=== PATIENT | female | born 1960 | race Hispanic/Latino ===

== ENCOUNTER 2018-01-19 23:05 | Inpatient (IN) | payer MEDICAID ==
[2018-01-19 23:05] VITALS: BMI 19.3
[2018-01-20 00:24] LABS: BASO % 0.4 % (0.0-2.0); EOS # 0.1 K/uL (0.0-0.7); EOS % 1.9 % (0.0-4.0); HEMOGLOBIN 13.8 g/dL (11.0-16.0); LYMPH % 42.4 % (20.0-40.0); MEAN CELL VOLUME 97.9 fL (81.0-99.0); MEAN CORPUSCULAR HEMOGLOBIN 33.8 pg (27.0-31.0); MEAN CORPUSCULAR HGB CONC 34.6 g/dL (33.0-37.0); MEAN PLATELET VOLUME 9.3 fL (7.2-11.7); MONO # 0.5 K/uL (0.0-0.8); MONO % 11.4 % (0.0-10.0); NEUT % 43.9 % (50.0-75.0); RBC 4.06 Mil/uL (3.80-5.20); RED CELL DISTRIBUTION WIDTH 12.4 % (11.5-14.5); WHITE BLOOD COUNT 4.6 K/uL (4.8-10.8)
[2018-01-20 00:27] LABS: URINE BILIRUBIN NEGATIVE (NEGATIVE); URINE BLOOD NEGATIVE (NEGATIVE); URINE CLARITY Clear (Clear); URINE COLOR Colorless (YELLOW); URINE GLUCOSE (UA) NORMAL (Normal); URINE LEUKOCYTE ESTERASE NEG Leu/uL (Negative); URINE PROTEIN NEGATIVE (NEGATIVE); URINE UROBILINOGEN NORMAL mg/dL (0.2-1.0)
[2018-01-20 00:33] LABS: HCG,QUALITATIVE URINE NEGATIVE (NEGATIVE)
[2018-01-20 00:35] LABS: ALB/GLOB RATIO 1.2 (1.0-2.1); ALBUMIN 4.5 g/dL (3.5-5.0); ALT/SGPT 106 U/L (9-52); AST/SGOT 120 U/L (14-36); BLOOD UREA NITROGEN 7 mg/dL (7-17); GFR AFRICAN-AMERICAN > 60; GFR NON-AFRICAN AMERICAN > 60
[2018-01-20 00:44] LABS: BARBITURATES, UR NEGATIVE (NEGATIVE); OPIATES, UR NEGATIVE (NEGATIVE); PHENCYCLIDINE, UR NEGATIVE (NEGATIVE)
[2018-01-20 01:50] LABS: BENZODIAZEPINES, UR POSITIVE (NEGATIVE)
--- NOTE | 2018-01-20 02:03 | C.PDOC ---
History Of Present Illness 57 y/o female presents to ER for alcohol detox. Pt was prescreened for detox. 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.Pt offers no c/o Time Seen by Provider: 01/20/18 01:59 Chief Complaint (Nursing): Substance Abuse History Per: Patient Modifying Factor(s): Alcohol Associated Symptoms: denies: Anxiety, Suicidal Thoughts Recent travel outside of the [place]: No Past Medical History Vital Signs: Last Vital Signs Temp 97.8 F 01/20/18 00:48 Pulse 98 H 01/20/18 00:48 Resp 18 01/20/18 00:48 BP 105/72 01/20/18 00:48 Pulse Ox 97 01/20/18 02:04 - Medical History PMH: Asthma, COPD, HTN, Hypercholesterolemia, Pneumonia, TIA Denies: Anxiety, Bipolar Disorder, Depression, Paranoia, Post Traumatic Stress Disorder, Chronic Kidney Disease, Schizophrenia - [facility] Procedures APPLICATION OF SPLINT (12/14/13) IMMOBILIZ/WOUND ATTN NEC (06/15/02) INJECT/INFUSE NEC (01/03/15) LOCAL EXCIS BREAST LES (08/14/99) NEBULIZER THERAPY (08/08/14) UMBIL HERNIA REPAIR NEC (08/14/99) Family History: States: Unknown Family Hx - Social History Hx Tobacco Use: Yes (QUIT) Hx Alcohol Use: Yes Hx Substance Use: No - Immunization History Hx Tetanus Toxoid Vaccination: No Hx Influenza Vaccination: No Hx Pneumococcal Vaccination: No Review Of Systems Constitutional: Negative for: Fever Cardiovascular: Negative for: Chest Pain Respiratory: Negative for: Shortness of Breath Psych: Negative for: Suicidal ideation Physical Exam - Physical Exam Appears: Well, No Acute Distress Head: Atraumatic Eye(s): bilateral: Normal Inspection Neck: Normal Cardiovascular: Rhythm Regular Respiratory: Normal Breath Sounds Gastrointestinal/Abdominal: Normal Exam, Soft Extremity: Normal ROM, No Pedal Edema Extremity: Bilateral: Atraumatic Neurological/Psych: Oriented x3, Normal Cognition Gait: Steady ED Course And Treatment - Laboratory Results Result Diagrams: 01/20/18 00:19 01/20/18 00:19 O2 Sat by Pulse Oximetry: 97 Pulse Ox Interpretation: Normal Progress Note: Labs reviewed. Pt is medically cleared for Detox. Pt was evaluated by fruit or nut farmworkerSusanne and will admit for alcohol detox under Dr Dara augustin Disposition - Disposition Disposition: HOSPITALIZED Disposition Time: 02:23 Condition: STABLE Forms: [facility] ([place]) - Clinical Impression Clinical Impression: Alcohol use disorder, severe, dependence, Sedative dependence with current use
--- NOTE | 2018-01-20 02:53 | PCM.BM ---
<Willie Lipscombelda Valdez - Last Filed: 01/20/18 02:52> Treatment Plan Problems - Problems identified on initial assessmt Ineffective Coping Skills Date Initiated: 01/20/18 Time Initiated: 02:52 Assessment reference: NA Status: Active Treatment assets and liabiliti Patient Assests: ADL independent Patient Liabilities: substance abuse - Milieu Protocol Maintain good personal hygiene: daily Encourage regular showers, daily Remind patient to perform daily oral care, other Assist patient to perform ADL's Maintain personal safety: every shift Educate patient to report safety concerns to staff, every shift Monitor environment for contraband/sharps Medication safety: Monitor for expected outcome, potential side effects: every shift, Assess barriers to learning: every shift, Assess readiness for medication education: every shift <Matt Diamond - Last Filed: 01/21/18 12:49> - Diagnosis (1) Alcohol use disorder, severe, dependence Status: Acute Interventions: 01/21/18 12:49 * Assess 7x/week regarding severity of withdrawal * Educate regarding risks, benefits, side effects and alternatives of medications * Use Motivational Interviewing for abstinence * Use CBT for relapse prevention * Medication management for withdrawal symptoms * Encourage medication assisted treatment * <Marilin Ryan - Last Filed: 01/21/18 13:30> Family Contact Family involvement: [place]/SO not involved - Goals for Treatment Patient goals for treatment: Complete detox and transtion to outpatient therapy. Discharge/Continuing Care - Education Needs Education Needs: Patient Medication, Patient Diagnosis/Disease Process, Patient Coping Skills, Patient Anger Management skills, Patient Placement options, Patient Community resources - Discharge Discharge Criteria: No longer exhibiting s/s of withdrawal, Reduction of target symptoms Discharge to:: Home - Treatment Team Participation Patient/Family/SO Statement: 01/21/18 13:29 "I'll go to outpatient after detox." Discussed with Family/SO: No Was Patient/Family/SO present at Treatment Team Meeting: Yes
[2018-01-20] MEDS: Albuterol HFA 90 mcg/actuation (8 g) INH PRN (08:13)
[2018-01-20] MEDS: Multiple Vitamins Tab PO SCH (09:35)
[2018-01-20] MEDS: Pantoprazole 40 mg EC Tab PO SCH (10:42)
--- NOTE | 2018-01-20 14:09 | PCM.PSYCH ---
Initial Psychiatric Evaluation - Initial Psychiatric Evaluation Type of Admission: Voluntary Legal Status: Capacity Chief Complaint (in patient's own words): "I need help with this" History of Present Illness and Precipitating Events: The patient is seen, chart reviewed and case discussed. This is a 57-year-old female, , has 2 children aged 19 and 27. The patient lives alone, unemployed since last Friday, she was a residential treatment specialist prior to that. The patient is here for alcohol detox; drinking "too much," such as more than a pint of vodka, plus beer and wine. This is in her first detox but she was in rehabilitation in 1978. She was in withdrawal and treatment started. Denies drugs or cigarette use, she quit 1 year ago. Past psych history: Denies Jane psych history: Her mother and sisters were all depressed. Medical history: High blood pressure and COPD Current Medications: Active Medications Generic Name Dose Route Start Last Admin Trade Name Freq PRN Reason Stop Dose Admin Albuterol 1 puff 01/20/18 07:52 01/20/18 08:13 Ventolin Hfa 90 Mcg/Actuation (8 G) INH 1 inhaler RQ4 PRN Administration Shortness of Breath Amlodipine Besylate 10 mg 01/20/18 10:30 01/20/18 10:42 Norvasc PO 10 mg DAILY TRACEY Administration Aspirin 81 mg 01/20/18 10:30 01/20/18 10:42 Aspirin Chewable PO 81 mg DAILY TRACEY Administration Clonidine HCl 0.1 mg 01/20/18 09:02 Catapres PO Q4H PRN FOR HIGH BLOOD PRESSURE Folic Acid 1 mg 01/20/18 10:00 01/20/18 09:35 Folic Acid PO Not Given DAILY TRACEY Gabapentin 300 mg 01/20/18 10:00 01/20/18 09:34 Neurontin PO 300 mg TID TRACEY Administration Loratadine 10 mg 01/20/18 10:30 01/20/18 10:42 Claritin PO 10 mg DAILY TRACEY Administration Lorazepam 1 mg 01/20/18 09:02 01/20/18 09:34 Ativan PO 1 mg Q4H PRN Administration Symptoms of alcohol withdrawl Lorazepam 2 mg 01/20/18 09:15 01/20/18 11:44 Ativan PO 01/25/18 09:14 2 mg Q4 TRACEY Administration Taper Multivitamins 1 tab 01/20/18 10:00 01/20/18 09:35 Hexavitamin PO Not Given DAILY TRACEY Pantoprazole Sodium 40 mg 01/20/18 10:30 01/20/18 10:42 Protonix Ec Tab PO 40 mg DAILY TRACEY Administration Pneumococcal Polyvalent Vaccine 0.5 ml 01/23/18 10:00 Pneumovax 23 Vaccine IM 01/23/18 10:01 .ONCE ONE Thiamine HCl 100 mg 01/20/18 10:00 01/20/18 09:35 Vitamin B1 Tab PO Not Given DAILY TRACEY Trazodone HCl 100 mg 01/20/18 03:21 01/20/18 03:30 Desyrel PO 100 mg HS PRN Administration Insomnia Past Psychiatric History - Past Psychiatric History Previous Treatment History: None Pertinent Medical Hx (Current Medical&Sleep Prob, Allergies): Allergies Allergy/AdvReac Type Severity Reaction Status Date / Time No Known Allergies Allergy Verified 01/19/18 23:38 Gabapentin [Neurontin] 600 mg PO TID 06/18/14 Alprazolam [Xanax] 0.25 mg PO DAILY 01/03/15 Fluticasone/Salmeterol [Advair Diskus 500/50] 1 puff IH BID 01/03/15 Omeprazole [PrilOSEC] 40 mg PO DAILY 01/03/15 Tiotropium [Spiriva] 18 mcg IH DAILY 01/03/15 Albuterol HFA [Ventolin HFA 90 mcg/actuation (8 g)] 2 puff IH [id number] PRN #120 puff 02/13/17 amLODIPine [Norvasc] 10 mg PO DAILY 02/13/17 Aspirin [Cantril Aspirin] 1 tab PO DAILY 02/26/17 Cetirizine HCl [Zyrtec] 1 tab PO DAILY 02/26/17 Montelukast [Singulair] 1 tab PO DAILY 02/26/17 Naproxen [Naprosyn] 500 mg PO BID PRN #14 tablet 02/26/17 Albuterol HFA [Ventolin HFA 90 mcg/actuation (8 g)] 2 puff IH [id number] #1 puff Benzonatate [Tessalon Perles] 100 mg PO Q8 #30 sgl 11/27/17 Prednisone [Deltasone] 40 mg PO DAILY #10 tablet 07/28/17 DiphenhydrAMINE [Benadryl] 25 mg PO Q8 PRN 5 Days #20 cap 09/19/17 Famotidine [Pepcid] 20 mg PO DAILY 5 Days #5 tab 09/19/17 predniSONE [Prednisone] 20 mg PO DAILY 5 Days #5 tab 09/19/17 Review of Systems - Psychiatric Psychiatric: Abnormal Sleep Pattern, Anhedonia, Anxiety, Change in Appetite, Depression, Irritability. absent: Homicidal Ideation, Paranoia, Suicidal Ideation Mental Status Examination - Personal Presentation Personal Presentation: Looks older than stated age - Affect Affect: Constricted - Motor Activity Motor Activity: Calm - Reliability in Providing Information Reliability in Providing Information: Good - Speech Speech: Organized - Mood Mood: Depressed, Anxious - Formal Thought Process Formal Thought Process: No Impairment - Cognitive Functions Orientation: Person, Place, Time Sensorium: Alert Attention/Concentration: Attentive Estimate of Intelligence: Average Judgement: Intact, as evidence by: Insight regarding need for hospitalization Memory: Recent intact, as evidence by: Ability to recall events of the day, Remote intact, as evidenced by: Abilit to recall sig. life events - Risk Risk: Withdrawal, Diminished functioning - Strength & Assets Inventory Strength & Assets Inventory: Cooperative - Limitations Limitations: Living alone DSM 5 DX - DSM 5 DSM 5 Diagnosis: Alcohol withdrawal, uncomplicated Alcohol use disorder, severe Depressive disorder, unspecified COPD High blood pressure - Recommended/Plan of Treatment Treatment Recommendations and Plan of Treatment: Taper with Ativan due to elevated liver enzymes Gabapentin for augmentation if needed SSRI for depression if needed As needed medications All risks, benefits and alternatives of the meds discussed, and the pt agreed and understood. Attend groups and activities Supportive therapy and psychoeducation NM for abstinence CBT for relapse prevention and depression Encourage MAT Refer to rehab or IOP, and self-help groups Smoking cessation with NM Nicotine patch if needed 34 min Projected ELOS: 5-6 days Prognosis: good w treatment - Smoking Cessation Smoking Cessation Initiated: Yes
[2018-01-21] MEDS: Multiple Vitamins Tab PO SCH (09:44)
[2018-01-21] MEDS: Pantoprazole 40 mg EC Tab PO SCH (09:44)
[2018-01-21] MEDS: Ammonium Lactate 12% Lotion (225 g) EXT SCH ×2 (12:36→18:48)
--- NOTE | 2018-01-21 12:48 | PCM.PYCHPN ---
Psychiatric Progress Note - Psychiatric Progress Note Patient seen today, length of contact: 16 min Patient Chief Complaint: "I could not sleep" Problems Identified/Issues Discussed: The pt is seen, chart reviewed, case discussed with staff. Support and psychoeducation given, CBT and SD used briefly No new symptoms reported, improving slowly and needs more time No SEs from medications, risks discussed. After care discussed Medication Change: Yes (detox changes daily) Medical Record Reviewed: Yes Mental Status Examination - Cognitive Function Orientation: Person, Place, Time Memory: Intact Attention: WNL Concentration: Poor Association: WNL Fund of Knowledge: WNL - Mood Mood: Depressed, Anxious - Affect Affect: Constricted - Speech Speech: Appropriate - Formal Thought Process Formal Thought Process: No Impairment - Suicidal Ideation Suicidal Ideation: No - Homicidal Ideation Homicidal Ideation: No Goal/Treatment Plan - Goal/Treatment Plan Need for Continued Stay: Discharge may exacerbated symptoms, Severe functional impairment Progress Toward Problem(s) and Goals/Treatment Plan: Taper with Ativan due to elevated liver enzymes Gabapentin for augmentation if needed SSRI for depression if needed As needed medications All risks, benefits and alternatives of the meds discussed, and the pt agreed and understood. Attend groups and activities Supportive therapy and psychoeducation SD for abstinence CBT for relapse prevention and depression Encourage MAT Refer to rehab or IOP, and self-help groups Smoking cessation with SD Nicotine patch if needed - Smoking Cessation Smoking Cessation Initiated: Yes
--- NOTE | 2018-01-22 08:55 | PCM.PYCHPN ---
Psychiatric Progress Note - Psychiatric Progress Note Patient seen today, length of contact: 16 min Patient Chief Complaint: "I am anxious" Problems Identified/Issues Discussed: The pt is seen, chart reviewed, case discussed with staff. Support given CA used After care discussed Anxiety mgt discussed No adalberto sxs, she is improving with treatment Medication Change: Yes (detox changes daily) Medical Record Reviewed: Yes Mental Status Examination - Cognitive Function Orientation: Person, Place, Time Memory: Intact Attention: WNL Concentration: Poor Association: WNL Fund of Knowledge: WNL - Mood Mood: Depressed, Anxious - Affect Affect: Constricted - Speech Speech: Appropriate - Formal Thought Process Formal Thought Process: No Impairment - Suicidal Ideation Suicidal Ideation: No - Homicidal Ideation Homicidal Ideation: No Goal/Treatment Plan - Goal/Treatment Plan Need for Continued Stay: Discharge may exacerbated symptoms, Severe functional impairment Progress Toward Problem(s) and Goals/Treatment Plan: Taper with Ativan due to elevated liver enzymes Gabapentin for augmentation if needed SSRI for depression if needed As needed medications All risks, benefits and alternatives of the meds discussed, and the pt agreed and understood. Attend groups and activities Supportive therapy and psychoeducation CA for abstinence CBT for relapse prevention and depression Encourage MAT Refer to rehab or IOP, and self-help groups Smoking cessation with CA Nicotine patch if needed
[2018-01-22] MEDS: Pantoprazole 40 mg EC Tab PO SCH (10:11)
[2018-01-22] MEDS: Multiple Vitamins Tab PO SCH (10:12)
[2018-01-22] MEDS: Ammonium Lactate 12% Lotion (225 g) EXT SCH ×2 (10:15→17:04)
[2018-01-22] MEDS: Albuterol HFA 90 mcg/actuation (8 g) INH PRN (21:09)
[2018-01-23] MEDS: Pantoprazole 40 mg EC Tab PO SCH (09:44)
[2018-01-23] MEDS: Multiple Vitamins Tab PO SCH (09:44)
[2018-01-23] MEDS ORDERED: Pneumococcal 23-Valent Vaccine IM ONE (10:00)
[2018-01-23] MEDS: Ammonium Lactate 12% Lotion (225 g) EXT SCH ×2 (11:06→17:13)
--- NOTE | 2018-01-23 11:12 | PCM.PYCHPN ---
Psychiatric Progress Note - Psychiatric Progress Note Patient seen today, length of contact: 15 min Patient Chief Complaint: "I am arnold today" Problems Identified/Issues Discussed: The pt is seen, chart reviewed, case discussed with staff. Support and psychoeducation given, CBT and CO used briefly No new symptoms reported, improving slowly and needs more time No SEs from medications, risks discussed. After care discussed - CRC Sx mgt discussed Medication Change: Yes (detox changes daily) Medical Record Reviewed: Yes Mental Status Examination - Cognitive Function Orientation: Person, Place, Time Memory: Intact Attention: WNL Concentration: Poor Association: WNL Fund of Knowledge: WNL - Mood Mood: Depressed, Anxious - Affect Affect: Constricted - Speech Speech: Appropriate - Formal Thought Process Formal Thought Process: No Impairment - Suicidal Ideation Suicidal Ideation: No - Homicidal Ideation Homicidal Ideation: No Goal/Treatment Plan - Goal/Treatment Plan Need for Continued Stay: Discharge may exacerbated symptoms, Severe functional impairment Progress Toward Problem(s) and Goals/Treatment Plan: Taper with Ativan due to elevated liver enzymes Gabapentin for augmentation if needed SSRI for depression if needed As needed medications All risks, benefits and alternatives of the meds discussed, and the pt agreed and understood. Attend groups and activities Supportive therapy and psychoeducation CO for abstinence CBT for relapse prevention and depression Encourage MAT Refer to rehab or IOP, and self-help groups Smoking cessation with CO Nicotine patch if needed
[2018-01-24] MEDS: Albuterol HFA 90 mcg/actuation (8 g) INH PRN (07:04)
--- NOTE | 2018-01-24 07:07 | PCM.PYCHDC ---
Mental Status Examination - Mental Status Examination Orientation: Person, Place, Situation, Time Memory: Intact Mood: Neutral Affect: Constricted Speech: Soft Attention: WNL Concentration: WNL Association: WNL Fund of Knowledge: WNL Formal Thought Process: No Impairment Description of patient's judgement and insight: good, fair Psychotic Thoughts and Behaviors: denies any AVH Suicidal Ideation: No Current Homicidal Ideation?: No Discharge Summary - Discharge Note Consultations:: List each consultation separately and include: 1. Reason for request. 2. Findings. 3. Follow-up Summary of Hospital Course include:: 1. Description of specific treatment plan utilized for patients during their course of treatmen. 2. Summarize the time- course for resolution of acute symptoms and/or regressed behaviors. 3. Describe issues identified and worked on during hospitalization. 4. Describe medication utilized. 5. Describe medical problems identified and treated. 6. Reassessment of suicide risk - Final Diagnosis (DSM 5) Condition upon Discharge: STABLE Disposition: HOME/ ROUTINE Prescriptions/Medication Reconciliation: amLODIPine [Norvasc] 10 mg PO DAILY #30 tab Aspirin [Aspirin Chewable] 81 mg PO DAILY #30 chew QUEtiapine [SEROquel] 50 mg PO HS #30 tab traZODone [Desyrel] 100 mg PO HS PRN #30 tab PRN Reason: Insomnia
[2018-01-24 09:35] VITALS: BP 106/79; PULSE 106; RESP 18; TEMP 98.3; O2SAT 95
[2018-01-24] MEDS: Pantoprazole 40 mg EC Tab PO SCH (09:39)
[2018-01-24] MEDS: Multiple Vitamins Tab PO SCH (09:40)
== END 2018-01-24 10:00 | disposition home or self-care (01) | DRG 750 ==
LOC: C.ER 23:05 → C.7D 01-20 02:20
PROVIDERS: ADMIT Psychiatry & Neurology Psychiatry; ATTEND Psychiatry & Neurology Psychiatry
PROC: HZ2ZZZZ Detoxification Services for Substance Abuse Treatment (ICD-10-PCS; principal; 2018-01-20)
DX: F10.230 Alcohol dependence with withdrawal, uncomplicated (principal); J44.9 Chronic obstructive pulmonary disease, unspecified; F32.9 Major depressive disorder, single episode, unspecified; F41.9 Anxiety disorder, unspecified; F17.200 Nicotine dependence, unspecified, uncomplicated; F19.10 Other psychoactive substance abuse, uncomplicated; F10.229 Alcohol dependence with intoxication, unspecified; Y90.8 Blood alcohol level of 240 mg/100 ml or more